=== PATIENT | male | born 1955 | race Caucasian/White ===

== ENCOUNTER → 2018-09-11 09:14 | Outpatient (CLI) | payer OTHER, SELFPAY ==
--- NOTE | 2018-09-11 12:59 | DI.ECHO.S_ITS ---
Echocardiogram Report + + :Name: MELVA WARREN Study Date: 09/11/2018 Height: 69 in : :[facility] Weight: 160 lb : : Gender: Male BSA: 1.9 m2 : :: 1955 Age: 63 yrs BP: 150/80 mmHg: :Reason For Study: Murmur : : Performed By: Magalis Payne : :Referring: JAMILA ERNST : + + Interpretation Summary -The aortic valve is heavily calcified.The aortic valve appears functionally bicuspid with fusion of the right and non-coronary cusps. -The aortic stenosis is severe both by continuity equation at 0.9 cm2 and the dimensionless index of 0.22. However, the maximum velocity 3.7 m/s with a mean gradient of 29 mmHg which is in moderate range. The stroke volume index is 45 ml/m??. -The left ventricle is normal in size, wall thickness, and systolic function without any focal wall motion abnormalities. Procedure: A two-dimensional transthoracic echocardiogram with color flow and Doppler was performed. The study quality was technically good. There is no prior echocardiogram noted for this patient. The patient was in normal sinus rhythm during the exam. Left Ventricle: The left ventricle is normal in size, wall thickness, and systolic function without any focal wall motion abnormalities. The ejection fraction is estimated to be 60-65%. Diastolic function could not be accurately assessed due to contradictory data. Right Ventricle: The right ventricle is borderline dilated. The right ventricular systolic function is normal. Atria: The left atrium is moderately dilated. The right atrium is mildly dilated. The interatrial septum is intact with no evidence for an atrial septal defect. Mitral Valve: The mitral valve is grossly normal. There is mild mitral regurgitation. Aortic Valve: The aortic valve is heavily calcified. Leaflet mobility is severely reduced. The aortic valve appears functionally bicuspid with fusion of the right and non-coronary cusps. The calculated aortic valve area is 0.9 cm2. The aortic valve area is 1.0 centimeters squared by planimetry. There is mild to moderate aortic regurgitation. Tricuspid Valve: The tricuspid valve leaflets are thin and pliable. There is mild tricuspid regurgitation. The right ventricular systolic pressure is estimated to be at least 38 mmHg based on an estimated right atrial pressure of 3 mm Hg. Pulmonic Valve: The pulmonic valve is not well seen, but is grossly normal. There is mild pulmonic regurgitation. Great Vessels: The aortic root is normal size. The dimensions of the ascending aorta are normal. The ascending aorta is normal in size. The IVC is of normal diameter and collapses greater than 50% with a sniff. This suggests a low right atrial pressure of 3 mm Hg. Pericardium/ Pleura There is no pericardial effusion. There is no pleural effusion. MMode/2D Measurements & Calculations LVIDd: 5.3 cm LVOT diam: 2.2 cm LVIDs: 3.7 cm Ao root diam: 2.9 cm FS: 29.9 % Aortic Jxn: 2.3 cm EPSS: 1.2 cm asc Aorta Diam: 3.3 cm IVSd: 0.89 cm Ao Arch Diam (Prox Trans): 2.9 cm LVPWd: 0.78 cm LV marshall. diameter/BSA (cm/m^2): 2.8 LV sys. diameter/BSA (cm/m^2): 2.0 LA dimension: 4.0 cm RA long axis: 5.2 cm LA A2 area: 26.3 cm2 RA area: 20.5 cm2 LA A4 area: 26.9 cm2 RA vol: 68.6 ml LA length (vol): 6.1 cm RA : 36.5 ml/m2 LA vol: 99.0 ml IVC diam: 2.0 cm LA vol index: 52.7 ml/m2 RVDd major: 5.7 cm RVD1 (basal): 4.0 cm RVD2 (mid): 3.1 cm RO (plan): 0.96 cm2 Doppler Measurements & Calculations Ao V2 max: 369.4 cm/sec LVOT Max Yinka: 81.3 cm/sec Ao V2 mean: 249.7 cm/sec LV V1 max P.6 mmHg Ao max P.6 mmHg LV V1 VTI: 22.5 cm Ao mean P.0 mmHg RO(I,D): 0.89 cm2 Ao V2 VTI: 101.1 cm RO(V,D): 0.87 cm2 sev ratio: 0.22 RO indexed to BSA (cm^2/m^2): 0.47 AI P1/2t: 597.2 msec AI dec slope: 218.5 cm/sec2 MV E max yinka: 90.9 cm/sec TR max yinka: 294.1 cm/sec MV A max yinka: 39.8 cm/sec TR max P.6 mmHg MV E/A: 2.3 PA V2 max: 73.3 cm/sec Med Peak E' Yinka: 4.4 cm/sec PA V2 mean: 50.6 cm/sec E/E' med: 20.5 PA mean P.2 mmHg Lat Peak E' Yinka: 3.9 cm/sec PA Accel Time: 0.14 sec E/E' lat: 23.3 E/e' average: 21.9 MV dec time: 0.22 sec MV P1/2t: 63.9 msec MV /2t max yinka: 90.3 cm/sec MVA(2t): 3.4 cm2 _ Electronically signed by: Misael Turner M.D. on Reading Physician:09/11/2018 07:19 PM
== END ==
PROVIDERS: PCP General Practice; Visit Provider General Practice
DX: I08.3 Combined rheumatic disorders of mitral, aortic and tricuspid valves (principal); R01.1 Cardiac murmur, unspecified
CPT/HCPCS: 93306